=== PATIENT | male | born 1985 | race Hispanic/Latino ===

== ENCOUNTER → 2024-09-03 | Outpatient (CLI) | payer OTHER ==
[~2024-09-03] MED LIST: ERGO2000 PO; LOSARTAN PO
--- NOTE | 2024-09-03 12:06 | NUR ---
BARIATRIC FOLLOW UP NOTE VISIT 2 OF 6 Wt: 349 LBS DOS:09/03/24 present. Communicated in Romansh and Slovenian Upon follow up visit, pt presents with a 3 lb wt loss. Pt reported happy towards wt loss, reduced fast food intake, has been doing portion control, no MVI QD, no protein supplements, decreased carbonation, water training, no exercise, increased protein and veggie intake. RD conducted 24 hr food recall. Breakfast: skipped Lunch: burger from [employer] + water Dinner: chicken breast + water S: candy RD reviewed simple CHO and complex CHO intake, discussed labs, encouraged PCP visit, encouraged pt to decrease soft drink (even sugar free) consumption secondary to carbonation and caffeine, pt verbalized understanding. RD and pt established goals for next month: -MVI QD -protein supplement QD walk for 1 x per week for 15 min Thank you for this visit Addendum: 09/03/24 at [address]án RD Amended: Links added.
== END | disposition home or self-care (01) ==
LOC: DTH 10:56 → EDUNIT# 11:30
PROVIDERS: ATTEND Surgery
DX: E66.01 Morbid (severe) obesity due to excess calories (principal); G47.33 Obstructive sleep apnea (adult) (pediatric); I10 Essential (primary) hypertension; M19.91 Primary osteoarthritis, unspecified site; K76.0 Fatty (change of) liver, not elsewhere classified; Z71.3 Dietary counseling and surveillance
CPT/HCPCS: 97803

== ENCOUNTER → 2024-09-30 | Outpatient (CLI) | payer OTHER ==
--- NOTE | 2024-09-30 15:00 | NUR ---
BARIATRIC FOLLOW UP NOTE VISIT 3 OF 6 Wt: 352 LBS DOS: 09/30/24 Visit via telehealth. present. Upon follow up visit, pt presents with a 1 lb wt loss. Pt reported there have been a lot of celebrations lately, has not seen a PCP yet, is with over the counter vit. D 5,000 IU daily, protein shakes daily, cut down on soda. RD conducted 24 hr food recall. Breakfast: protein shake Lunch: chicken sandwich + water Dinner: chicken S: candy + SF juice RD reviewed protein intake, reviewed importance of calcium and vit. D, reviewed food sources for calcium and vitamin D, encouraged pt to decrease soft drink (even sugar free) consumption secondary to carbonation and caffeine, pt verbalized understanding. RD and pt established goals for next month: -continue walking 3x per week for 25 min -increase veggie intake -protein shake + CHO Thank you for this visit Addendum: 09/30/24 at [address]án RD Amended: Links added.
== END | disposition home or self-care (01) ==
LOC: DTH 14:08 → EDUNIT# 10-01 11:30
PROVIDERS: ATTEND Surgery
DX: E66.01 Morbid (severe) obesity due to excess calories (principal); G47.33 Obstructive sleep apnea (adult) (pediatric); I10 Essential (primary) hypertension; M19.91 Primary osteoarthritis, unspecified site; K76.0 Fatty (change of) liver, not elsewhere classified
CPT/HCPCS: 97803

== ENCOUNTER → 2024-11-05 | Outpatient (CLI) | payer OTHER ==
--- NOTE | 2024-11-05 13:05 | NUR ---
BARIATRIC FOLLOW UP NOTE VISIT 4 OF 6 Wt: 350 LBS DOS: 11/05/24 present during visit. Upon follow up visit, pt presents with a 2 lb wt loss. Pt reported he is surprised with wt loss, has been trying protein supplements, walking 2x per week for 30 mins, on vit. D prescription, decreased carbonation. RD conducted 24 hr food recall. Breakfast: skipped Lunch: skipped Dinner: chicken and mushroom + coke zero S: MARYSE kidd RD reviewed protein, calcium, and vit. D importance + requirements, encouraged pt to decrease soft drink (even sugar free) consumption secondary to carbonation and caffeine, pt verbalized understanding. RD and pt established goals for next month: -no skipping meals -protein supplement QD -walking 4x per week for 45 min Thank you for this visit Addendum: 11/05/24 at [address]án RD Amended: Links added.
== END | disposition home or self-care (01) ==
LOC: EDUNIT# 10-29 11:30 → DTH 11:39
PROVIDERS: ATTEND Surgery
DX: E66.01 Morbid (severe) obesity due to excess calories (principal); I10 Essential (primary) hypertension; G47.33 Obstructive sleep apnea (adult) (pediatric); M19.91 Primary osteoarthritis, unspecified site; K76.0 Fatty (change of) liver, not elsewhere classified; Z68.42 Body mass index [BMI] 45.0-49.9, adult; Z71.3 Dietary counseling and surveillance
CPT/HCPCS: 97803

== ENCOUNTER → 2024-11-26 | Outpatient (CLI) | payer OTHER ==
--- NOTE | 2024-11-26 16:22 | NUR ---
BARIATRIC FOLLOW UP NOTE VISIT 5 OF 6 Wt: 348 LBS DOS: 11/26/24 Visit via telehealth. Upon follow up visit, pt presents with a 2 lb wt loss. Pt reported got procedure recently, plans to take two weeks off work, weight 348 lb this 11/24/24, waiting on schedule checker, walking 30 mins QD, cut back on snacks, has been using CPAP machine, has been sleeping better, on vit. D prescription. RD conducted 24 hr food recall. Breakfast: protein shake Lunch: chicken breast and lettuce Dinner: chicken wings RD reviewed fiber requirements, discussed probiotics and prebiotics, encouraged pt to decrease soft drink (even sugar free) consumption secondary to carbonation and caffeine, pt verbalized understanding. RD and pt established goals for next month: -continue MVI QD -increase color in meals -walking QD 45 mins Thank you for this visit Addendum: 11/26/24 at [address]án RD Amended: Links added.
== END | disposition home or self-care (01) ==
LOC: EDUNIT# 11:30 → DTH 14:21
PROVIDERS: ATTEND Surgery
DX: E66.01 Morbid (severe) obesity due to excess calories (principal); I10 Essential (primary) hypertension; G47.33 Obstructive sleep apnea (adult) (pediatric); K76.0 Fatty (change of) liver, not elsewhere classified; M19.91 Primary osteoarthritis, unspecified site; Z68.42 Body mass index [BMI] 45.0-49.9, adult
CPT/HCPCS: 97803

== ENCOUNTER → 2024-12-17 | Outpatient (CLI) | payer OTHER ==
--- NOTE | 2024-12-17 15:05 | NUR ---
FOLLOW PRE-OP/POST-OP DIETARY RECOMMENDATIONS BARIATRIC PRE-OP VISIT VISIT 6 OF 6 Wt: 344 lbs DOS: 12/17/24 Upon follow up visit, pt presented with a 5 lb wt gain. Pt reported he weighs 335 lbs at home, procedure date December 24, on a liquid diet, has clear protein, on a bariatric chewable, has not been exercising. RD reviewed educational material for pre-op and post-op diet recommendations with detailed phases of diet post-op. Pt was informed of importance of lifelong vitamin/mineral supplementation, choosing protein first during meals (pt was educated on higher protein requirements), choosing low calorie, sugar free, carbonated free and caffeine beverages. RD also informed pt on lifelong commitment to exercise and dietary recommendations for optimal success post surgery. RD encouraged getting blood work every 3 to 6 months, including B-vitamins, Pt verbalized understanding. RD informed Pt on moving around after procedure to prevent DVT, Pt verbalized understanding. Pt was encouraged to contact RD as questions arise and to attend support groups. RD provided protein supplement recommendations along with Bariatric Vitamin recommendations via graphics to patient. Pt with several questions, all of which were answered. Fair compliance suspected. Pt will benefit from outpatient bariatric dietitian follow up post procedure. Pt to follow up with PCP for labs. Thank you for this visit. Addendum: 12/17/24 at [address]án RD Amended: Links added.
== END | disposition home or self-care (01) ==
LOC: EDUNIT# 11:30 → DTH 14:15
PROVIDERS: ATTEND Surgery
DX: E66.01 Morbid (severe) obesity due to excess calories (principal); G47.33 Obstructive sleep apnea (adult) (pediatric); I10 Essential (primary) hypertension; K76.0 Fatty (change of) liver, not elsewhere classified; M19.91 Primary osteoarthritis, unspecified site; Z68.42 Body mass index [BMI] 45.0-49.9, adult
CPT/HCPCS: 97803